=== PATIENT | female | born 1935 | race Caucasian/White ===

== ENCOUNTER 2016-07-05 13:39 | Inpatient (IN) | payer OTHER ==
[~2016-07-05] VITALS: Ht 180.3 cm; Wt 84.8 kg
[2016-07-05] VITALS (17 sets, daily range): BP systolic 60–140; BP diastolic 10–106
--- NOTE | ~2016-07-05 | H ---
[facility] [place] [address] HISTORY AND PHYSICAL Name: ESTEBAN GIRON Sanjiv Room #: 420-P [facility] IN M.R.#: [id number] Admission: 07/05/16 Attend Phys: Deya Haile MD Discharge: 07/11/16 Date of : 34 Report #: [id number] THIS REPORT FOR: //name// CC: Lokesh Haile PRIMARY CARE PHYSICIAN: Lokesh Whelan M.D. CHIEF COMPLAINT: Worsening respiratory failure secondary to pneumonia and influenza. HISTORY OF PRESENT ILLNESS: The patient is an 80-year-old female with a history of pulmonary fibrosis, chronic respiratory failure requiring nocturnal O2 followed at by Dr. Nelson, diabetes, hypothyroidism, AFib on chronic anticoagulation and prior PE; was transferred from [facility] secondary to worsening respiratory status. The patient was actually admitted at [facility] at which time she was treated for pneumonia. She was admitted on 06/27/2016. She subsequently was transferred to [facility] but in the past 24 hours, has decompensated. She generally is on 2 liters of nocturnal home O2, but is currently on 4 liters. Recent workup included influenza swab that was positive for influenza A. She reports more shortness of breath with minimal exertion. Repeat chest x-ray done yesterday showed a mild vascular congestion with persistent left lower lobe consolidating infiltrate. She was subsequently transferred up here and is currently in ICU. She also has a history of chronic lower extremity swelling and has wounds that have gotten worse in the recent past as well. PAST MEDICAL HISTORY: Pulmonary fibrosis with chronic respiratory failure, on nocturnal O2; diabetes; hypothyroidism; neuropathy; atrial fib, on chronic anticoagulation; prior PE and DVT, on Coumadin; hypertension; aortic stenosis; COPD; diverticulitis, recurrent UTIs and rheumatoid arthritis. PAST SURGICAL HISTORY: Appendectomy, hysterectomy, shoulder surgery and right lower extremity venous stripping. ALLERGIES: To MACRODANTIN, FENTANYL, SULFA and DUONEB, reactions unknown. SOCIAL HISTORY: She is a former smoker. Drinks recreationally, lives alone at home. FAMILY HISTORY: Positive for heart disease in CVA. REVIEW OF SYSTEMS: A 14-point review of system was conducted, all negative except for above. As stated, she was recently at [facility] for pneumonia. She has been having loose stools and reported C. diff over at the outlying facility was negative. [address] [address] HISTORY AND PHYSICAL Name: ESTEBAN GIRON Room #: 420-P [facility] IN [facility]#: [id number] Admission: 07/05/16 Attend Phys: Deya Haile MD Discharge: 07/11/16 Date of : 34 Report #: [id number] HOME MEDICATIONS: 100 mcg daily, metoprolol XL 50 daily, glimepiride 1 mg q.a.m., gabapentin 100 t.i.d., diltiazem 180 b.i.d., Breo one inhalation daily, oxybutynin 5 mg b.i.d., prednisone 5 mg daily, propranolol 10 mg daily, Zantac 150 b.i.d. and temazepam 15 p.r.n. PHYSICAL EXAMINATION: VITAL SIGNS: Temperature of 98.1, heart rate 76, blood pressure 113/50 and O2 sat is 98% on 4 liters. GENERAL: She is awake, alert, answering questions appropriately, no acute respiratory distress unless she exerts herself. HEENT: Normocephalic and atraumatic. Pupils equal. Mucous membranes are dry. NECK: Supple. CARDIOVASCULAR: Regular rate and rhythm. No murmurs. LUNGS: Clear to auscultation bilaterally, decreased in the bases. Coarse breath sounds. ABDOMEN: Soft. No distention or tenderness. EXTREMITIES: She has got 1+ edema bilaterally with notable ecchymosis and wrapping over her left lower extremity from the previous facility. LABORATORY DATA AND TESTING: Influenza A was positive. Chest x-ray yesterday showed a mild vascular congestion. Sodium 149, potassium 3.2, mag was 1.4, total CO2 of 30 and BUN and creatinine 20 and 0.9. 45. Albumin 2.4. White count 8.3, H and H of 10 and 33 and MCV of 97. ASSESSMENT AND PLAN: 1. Luxva-ml-sgvgpue hypoxic respiratory failure, influenza. 2. Healthcare associated pneumonia. 3. Question vascular congestion. 4. Hyponatremia. 5. Chronic obstructive pulmonary disease and pulmonary fibrosis. 6. The patient got chronic obstructive pulmonary disease exacerbation. 7. Pulmonary fibrosis. 8. Chronic immunosuppression. 9. Type 2 diabetes. 10. History of rheumatoid arthritis. 11. Paroxysmal atrial fibrillation, on chronic anticoagulation. 12. History of pulmonary embolism and deep venous thrombosis. 13. Aortic stenosis. 14. Chronic lower extremity swelling with chronic wounds. 15. Recurrent urinary tract infections. 16. Hypothyroidism. 17. Neuropathy. PLAN: 1. We will continue broad-spectrum antibiotics. [facility] [address] [place] [address] HISTORY AND PHYSICAL Name: ESTEBAN GIRON Room #: 420-P [facility] IN .R.#: [id number] Admission: 07/05/16 Attend Phys: Deya Haile MD Discharge: 07/11/16 Date of : 34 Report #: [id number] 2. Pulmonary toiletry. 3. Nebulizers with Xopenex, not DuoNeb as she has allergies to that. 4. Steroids. 5. O2 support. 6. Continue Tamiflu. 7. Fluid support with half-normal saline. 8. Resume oral hypoglycemics and Accu-Cheks. 9. Daily INRs and resume Coumadin. 10. Get wound care to see her. 11. Check a C. diff. 12. DVT prophylaxis, she is on Coumadin. <ELECTRONICALLY SIGNED> By: Shraddha Penaloza MD 07/29/162009 1635 1754 Shraddha Penaloza MD /nt
--- NOTE | ~2016-07-05 | HC ---
[facility] [place] [address] CONSULTATION Name: BREEESTEBAN Sanjiv Room #: 420-P [facility] IN ..#: [id number] Admission: 07/05/16 Attend Phys: Deya Haile MD Discharge: 07/11/16 Date of : 34 Report #: [id number] THIS REPORT FOR: //name// CC: Lokesh Haile DATE OF SERVICE: 07/08/2016 PERSONAL PHYSICIAN: Kush Mackenzie DO in [place]. New hospital visit for an established patient of mine. CHIEF COMPLAINT: Leg ulcer and coccyx ulcer. HISTORY OF PRESENT ILLNESS: The patient is an 80-year-old white female who is currently hospitalized now for influenza and respiratory failure. Upon admission, the patient was noted to have edematous legs of which I have been asked to assist in the care. The patient also, because of severe immobility, has developed a small coccygeal ulcer which she does complain of mild pain. The patient denies any actual recent fevers or chills. The patient denies any other associated complaints at this time. DRUG ALLERGIES: Multiple; I reviewed the patient's drug allergies, does include SULFA. I have noted this even though we will still use morphine and Silvadene cream on the patient. CURRENT MEDICATIONS: Multiple; I reviewed the patient's medication list. PAST MEDICAL HISTORY: Significant for: 1. Pulmonary embolism. 2. Pulmonary fibrosis. 3. Chronic venous insufficiency/lymphedema with recurrent ulcerations. 4. Hypertension. PAST SURGICAL HISTORY: Colon resection, hysterectomy, tonsillectomy, carpal tunnel release and hernia repair. FAMILY HISTORY: Significant for heart disease. SOCIAL HISTORY: The patient has a remote history of smoking, alcohol use is rare, lives independently with her family. REVIEW OF SYSTEMS: CONSTITUTIONAL: The patient denies fevers or chills, but did have fevers and chills prior to admission. [facility] [address] [place] [address] CONSULTATION Name: ESTEBAN GIRON Room #: 420-P [facility]#: [id number] Admission: 07/05/16 Attend Phys: Deya Haile MD Discharge: 07/11/16 Date of : 34 Report #: [id number] NEUROLOGIC: The patient complains of overall generalized weakness. EYES: No complaints. ENT: No complaints. CARDIAC: The patient denies chest pain or palpitations, has chronic lower extremity edema. RESPIRATORY: The patient is currently having wheezes with shortness of breath and dyspnea associated with cough. GASTROINTESTINAL: The patient denies nausea, vomiting, abdominal pain but a decreased appetite. GENITOURINARY: The patient denies urgency or frequency. MUSCULOSKELETAL: No complaints. SKIN: Chronic ulcer on the right great toe which started as a small blister. There is a single coccygeal ulcer, stage 2. PHYSICAL EXAMINATION: VITAL SIGNS: Stable. The patient is afebrile. GENERAL: This is an alert and oriented x 3, pleasant elderly white female who is in [id number] respiratory distress. HEENT: Normocephalic, atraumatic. Mucous membranes are dry. Pupils are round. Nasal cannula is in place. Sclerae are white. NECK: Without JVD or masses. BACK: Nontender. LUNGS: Coarse with wheezes heard throughout. CHEST: Nontender. HEART: Regular, without murmur. ABDOMEN: Soft, otherwise nontender. EXTREMITIES: The patient has trace to 1+ edema in the lower extremities which is markedly improved from my previous exam. There is a small dry eschar on the right great toe which appears to be a resolved blister. No evidence of any obvious open ulcerations are noted on the lower extremities. Evaluation of the coccygeal area reveals a stage 2 superficial ulcer which is clean and granulating. NEUROLOGIC: Cranial nerves 2-12 are grossly intact. Motor and sensory are grossly intact. LABORATORY DATA: White count 9.1, hemoglobin 11.3. WOUND CARE COURSE: At this time, we are going to continue current course of Xeroform to bilateral lower extremities with Kerlix and Ben for control of edema. I am changing this every 2 days. We will start morphine and Silvadene cream to the coccygeal ulceration 3 times daily and p.r.n. soilage. We will order the patient today a low air loss mattress as well due to her significant immobility as well as an air loss cushion for her chair. We will make sure we maximize the patient's protein supplementation for healing. Once the patient is more medically stable, we will try to increase the patient's physical and occupational therapy for strengthening. I appreciate the ability consulting [address] [address] CONSULTATION Name: BREEESTEBAN Room #: 420-P [facility] IN [facility].#: [id number] Admission: 07/05/16 Attend Phys: Deya Haile MD Discharge: 07/11/16 Date of : 34 Report #: [id number] this patient ____ in this patient. IMPRESSION: 1. Chronic venous insufficiency/lymphedema with edema, overall ____ controlled. 2. Stage 2 coccygeal ulcer. 3. Chronic ulcer, right great toe - with eschar. 4. Generalized debility. PLAN: Once again described as above. <ELECTRONICALLY SIGNED> By: Remy Romero MD 07/18/16 0824 1746 2256 Remy Romero MD /nt
--- NOTE | ~2016-07-05 | 2DMMODE ---
[facility] [place] [address] 2 D/M-MODE ECHOCARDIOGRAM Name: ESTEBAN GIRON Sanjiv Room #: 244-P [facility] IN .#: [id number] Admission: 07/05/16 Attend Phys: Deya Haile Discharge: Date of : 34 Date of Service: 07/07/16 1347 Report #: [id number] THIS REPORT FOR: //name// Transthoracic Echocardiography Ordering physician: Karmen Fregoso Referring physician: Lokesh Whelan Laura L. Cognos: NICOLAS Manriquez Indications/History: Aortic stenosis, Atrial fibrillation,SOA, HTN, HLP. BP: 134 / HR: Height: 70in Weight: 194.6lb 90 Study data: M-mode, complete 2D, complete spectral Doppler, and color Doppler. Location: Bedside. Routine. Image quality was adequate. The study was technically limited due to body habitus. 2D measurements Normal Normal LVID ED 34.4mm 36-57 IVS ED 12.2mm 6-11 LVID ES 23.8mm 23-40 LVPW ED 13.3mm 6-11 LA volume 51ml/m2 16-28 AoRoot diam 31.3mm 21-37 index ED LVOT diameter 21mm 18-23 Findings: Left ventricle: The cavity size was normal. Wall thickness was normal. Systolic function was normal. The estimated ejection fraction was in the range of 55% to 60%. Wall motion was normal. Right ventricle: The cavity size was dilated. Systolic function was normal. Right atrium: The atrium was dilated. Left atrium: The atrium was dilated. Volume index: 51ml/m2 (S). Aortic valve: Trileaflet; mildly thickened, mildly calcified leaflets. Doppler: There was mild stenosis. [facility] [place] [address] 2 D/M-MODE ECHOCARDIOGRAM Name: ESTEBAN GIRON Room #: 244-P [facility] IN [facility]#: [id number] Admission: 07/05/16 Attend Phys: Deya Haile Discharge: Date of : 34 Date of Service: 07/07/16 1347 Report #: [id number] Trivial regurgitation. Peak velocity: 243.3cm/s (S). Valve area: 1.2cm2(VTI). Mean gradient: 11.7mm Hg (S). Peak gradient: 23.9mm Hg (S). Mitral valve: Mildly calcified annulus. Doppler: There was no evidence for stenosis. Mild regurgitation. Peak E-wave velocity: 105.5cm/s. Peak gradient: 4.4mm Hg (D). Tricuspid valve: Structurally normal valve. Doppler: There was no evidence for stenosis. Moderate regurgitation. Regurgitant peak velocity: 307cm/s. Peak RV-RA gradient: 38mm Hg (S). Pulmonic valve: Structurally normal valve. Doppler: There was no evidence for stenosis. No regurgitation. Pericardium: There was no pericardial effusion. Aorta: Aortic root: The aortic root was normal in size. Pulmonary artery: Systolic pressure was estimated to be 53mm Hg. Diastolic function: The study was not technically sufficient to allow evaluation of LV diastolic dysfunction due to atrial fibrillation. Systemic veins: Inferior vena cava: The vessel was dilated; respirophasic changes in dimension were absent. Conclusions 1. Left ventricle: The cavity size was normal. Wall thickness was normal. Systolic function was normal. The estimated ejection fraction was in the range of 55% to 60%. 2. Right ventricle: The cavity size was dilated. 3. Right atrium: The atrium was dilated. 4. Left atrium: The atrium was dilated. 5. Aortic valve: Trileaflet; mildly thickened, mildly calcified leaflets. There was mild stenosis. Trivial regurgitation. 6. Mitral valve: Mildly calcified annulus. 7. Tricuspid valve: Moderate regurgitation. 8. Pulmonary arteries: Systolic pressure was estimated to be 53mm Hg. 9. Inferior vena cava: The vessel was dilated; respirophasic changes in dimension were absent. <ELECTRONICALLY SIGNED> By: Garcia Beard MD 07/07/16 1505 1347 1505 Garcia Beard MD /evan
--- NOTE | ~2016-07-05 | HC ---
[facility] [place] [address] CONSULTATION Name: ESTEBAN GIRON Room #: 244-P [facility] IN M.R.#: [id number] Admission: 07/05/16 Attend Phys: Deya Haile MD Discharge: Date of : 34 Report #: [id number] THIS REPORT FOR: //name// CC: Lokesh Haile DATE OF SERVICE: 07/06/2016 ATTENDING PHYSICIAN: Deya Haile M.D. PHYSICIAN REQUESTING CONSULTATION: Dr. Penaloza. REASON FOR CONSULTATION: Pneumonia. HISTORY OF PRESENT ILLNESS: The patient is an 80-year-old white woman, transferred to [facility] from [facility] where she was hospitalized for a week with increasing difficulty in breathing and found to have worsening pulmonary infiltrates and increased requirements of supplemental oxygen. The patient is seen in the intensive care unit. The patient's daughter assists with the history. The patient apparently was recently diagnosed the day prior to admission with influenza. She was started on oseltamivir. She was already on intravenous antibiotics, Levaquin, Zosyn, vancomycin as well as increased doses of steroids. PAST MEDICAL HISTORY AND PAST SURGICAL HISTORY: 1. Possible pulmonary fibrosis and bronchiectasis, being followed at [facility]. She was started on medication for pulmonary fibrosis that she did not tolerate, subsequently put on steroids. 2. There was a tentative diagnosis of rheumatoid arthritis, and this was ruled out, but she does have significant osteoarthritis. 3. Diabetes mellitus. 4. Neuropathy. 5. Atrial fibrillation, on chronic anticoagulation. 6. Pulmonary embolism with DVT. 7. Aortic stenosis. 8. Previous episode of diverticulitis. 9. She is status post appendectomy, hysterectomy, venous stripping lower extremities. DRUG ALLERGIES: SULFA, ALBUTEROL, METHOTREXATE, NITROFURANTOIN, FENTANYL, HYDROXYCHLOROQUINE, ATROVENT, RIVAROXABAN and APIXABAN. CURRENT MEDICATIONS: The patient is on treatment with warfarin, glyburide, insulin aspartate per sliding scale, Diltiazem, oseltamivir 75 mg IV daily, Zosyn 3.375 grams IV every 6 hours, vancomycin 1 g IV every 12 hours and Levaquin 500 mg IV daily. The patient is also on p.r.n. loperamide, glucagon, [address] [address] CONSULTATION Name: ESTEBAN GIRON Sanjiv Room #: 244-P [facility] IN ..#: [id number] Admission: 07/05/16 Attend Phys: Deya Haile MD Discharge: Date of : 34 Report #: [id number] glucose, ondansetron and acetaminophen. SOCIAL HISTORY: See H and P. FAMILY HISTORY: See H and P. REVIEW OF SYSTEMS: The patient recently diagnosed to have influenza, which made things worse. Aches and pains all over. Skin breakdown lower and upper extremities, possibly from steroid use. NEUROLOGIC: Increasing weakness. RESPIRATORY: Increasing shortness of breath, no expectoration. No gastrointestinal or genitourinary issues at present. PHYSICAL EXAMINATION: GENERAL: Well-developed, ill-appearing woman. VITAL SIGNS: Afebrile since admission. Temperature 98.4, pulse 105, respirations 23, blood pressure ____/87 and O2 supplementation per nasal cannula at 4 liters per minute gives her a saturation of 98%. HEENMT: Head normocephalic and atraumatic. Pupils reactive. Mouth, very dry mucous membranes. NECK: Supple, no thyromegaly. BREASTS: Deferred. LUNGS: Rhonchi, crackles and congested sounding, particularly worse posteriorly on both bases, left greater than right. HEART: S1 and S2. No gallop or murmur. ABDOMEN: Soft, no masses or megaly. PELVIC AND RECTAL: Deferred. EXTREMITIES: Dressing on legs intact. Skin breakdown upper extremities. NEUROLOGIC: Grossly within normal limits. LABORATORY DATA: The referring hospital, rapid influenza test positive for influenza A. Sodium 147, potassium 3.4, corrected to 3.5, BUN 20, creatinine 1, glucose 141, 149, protime 15.4 and INR 1.5. WBC 9800, hemoglobin 10.6 g/dL and platelets 346,000. There was a vancomycin trough obtained yesterday. This was 28. Repeat vancomycin level is pending today. MRSA screen negative. Urine analysis, trace blood, otherwise negative. MICROBIOLOGY DATA: 1 out of 2 blood cultures reveal Enterococcus species, full identification and sensitivity is pending. The urine is negative for Legionella and Streptococcus pneumoniae antigen. RADIOLOGY EVALUATION: CT scan of the chest PE protocol is negative for pulmonary embolism, but the patient has ground-glass appearance of pulmonary cesar as well as bronchiectasis and pulmonary infiltrates, worse on left. Multiple level compression fractures are detected and significant coronary artery calcification noted. [facility] [address] [place] [address] CONSULTATION Name: ESTEBAN GIRON Room #: 244-P [facility] IN M.R.#: [id number] Admission: 07/05/16 Attend Phys: Deya Haile MD Discharge: Date of : 34 Report #: [id number] ASSESSMENT: 1. Pneumonia with single positive blood culture that turns out to be Enterococcus species. 2. Bronchiectasis. 3. Pulmonary fibrosis. 4. 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 5. Osteoarthritis (rheumatoid arthritis ruled out). 6. Chronic atrial fibrillation. 7. History of pulmonary embolism, on chronic anticoagulation. 8. Influenza A. 9. Anemia of chronic disease. 10. Skin breakdown of upper and lower extremities, possibly secondary to chronic steroid use. SUGGESTIONS: Recommend continued coverage with Levaquin, Zosyn and vancomycin as well as Tamiflu. Obtain immunoglobulin levels and have ordered urine for Pneumococcus and Legionella antigen. Dr. Penaloza, thank you for requesting my suggestions in the care of your patient. <ELECTRONICALLY SIGNED> By: Billy Hayes MD 07/08/16 1011 1030 1608 Billy Hayes MD /nt
[2016-07-05 17:44] LABS: INR 1.7; PROTIME 18.1 Seconds (9.3-11.4)
[2016-07-05 17:45] LABS: TROPONIN-I < 0.04 ng/mL (<0.04-0.07)
[2016-07-05] MEDS ORDERED: ACETAMINOPHEN-1 EAC1 PO (19:09)
[2016-07-05] MEDS ORDERED: GABAPENTIN 100100 MG PO (23:40)
[2016-07-05] MEDS ORDERED: XOPENEX 0.63 MG/3 M1 INH (23:43)
[2016-07-05] MEDS ORDERED: AZITHROMYCIN500 M1 IV (23:43)
[2016-07-05] MEDS ORDERED: ZOSYN 3.3753.375 GM IV (23:50)
[2016-07-05] MEDS ORDERED: CARDIZEM CD180 MG PO (23:52)
[2016-07-05] MEDS ORDERED: OXYBUTYNIN 5 MG5 M2 PO (23:53)
[2016-07-05] MEDS ORDERED: ZANTAC 150MG T150 MG PO (23:54)
[2016-07-05] MEDS ORDERED: LEVOTHYROXINE 0.1 MG PO (23:55)
[2016-07-05] MEDS ORDERED: AMARYL2 MG PO (23:57)
[2016-07-05] MEDS ORDERED: BUMETANIDE0.25 MG/1 PO (23:58)
[2016-07-06] VITALS (20 sets, daily range): BP systolic 131–151; BP diastolic 70–104
[2016-07-06] MEDS ORDERED: BREO ELLIPTA 21 EACH IH (00:01)
[2016-07-06] MEDS ORDERED: TOPROL XL100 MG PO (00:02)
[2016-07-06] MEDS ORDERED: PREDNISONE 5 MG5 M1 PO (00:03)
[2016-07-06] MEDS ORDERED: LOPERAMIDE 2 MG2 M1 PO (00:04)
[2016-07-06 00:06] LABS: TROPONIN-I < 0.04 ng/mL (<0.04-0.07)
[2016-07-06] MEDS ORDERED: VANCOMYCIN1 GM/200 M IV (00:06)
[2016-07-06] MEDS ORDERED: NYSTATIN 1100000 U/M SWISH&SPIT (00:07)
[2016-07-06] MEDS ORDERED: KLOR-CON 1010 MEQ PO (00:11)
[2016-07-06 06:50] LABS: HEMATOCRIT 32.8 % (37.0-47.0); HEMOGLOBIN 10.7 gm/dL (12.0-15.0); MCH 31.6 pg (26.0-34.0); MCHC 32.6 % (28.0-37.0); MCV 96.8 fL (80.0-100.0); PLATELET COUNT 351 thou/uL (150-400); RBC 3.39 mil/uL (4.20-5.00); RDW 16.7 % (10.5-14.5); WBC 10.1 thou/uL (4.0-11.0)
[2016-07-06 07:04] LABS: CALCIUM 8.1 mg/dL (8.5-10.1); POTASSIUM 3.4 mmol/L (3.5-5.1)
[2016-07-06 07:05] LABS: INR 1.7; PROTIME 17.2 Seconds (9.3-11.4)
[2016-07-06 07:12] LABS: MANUAL DIFF YES
[2016-07-06 08:07] LABS: ABSOLUTE NEUTROPHILS 8.8 thou/uL (1.4-8.2); POIKILOCYTOSIS SLIGHT; TOTAL CELL COUNT 100
[2016-07-06 12:54] LABS: URINE BILIRUBIN NEGATIVE (Negative); URINE BLOOD TRACE (Negative); URINE COLOR YELLOW; URINE GLUCOSE-RANDOM* NEGATIVE (Negative); URINE KETONES NEGATIVE (Negative); URINE LEUKOCYTES-REFLEX NEGATIVE (Negative); URINE PROTEIN (DIPSTICK) 1+ (Negative); URINE SPECIFIC GRAVITY 1.025 (1.003-1.035); URINE UROBILINOGEN 0.2 E.U./dl (0.2-1.0)
[2016-07-06 13:01] LABS: CASTS None Seen /LPF (None Seen); CRYSTALS None Seen /LPF (None Seen); SQUAMOUS 0-3 Few /LPF (0-3); URINE RBC 0-2 Rare /HPF (0-2); URINE WBC-REFLEX None Seen /HPF (0-5)
[2016-07-07] VITALS (23 sets, daily range): BP systolic 128–161; BP diastolic 66–112
[2016-07-07 02:08] LABS: HEMATOCRIT 32.3 % (37.0-47.0); HEMOGLOBIN 10.6 gm/dL (12.0-15.0); MCH 31.9 pg (26.0-34.0); MCHC 32.8 % (28.0-37.0); MCV 97.2 fL (80.0-100.0); RBC 3.32 mil/uL (4.20-5.00); RDW 16.9 % (10.5-14.5); WBC 9.8 thou/uL (4.0-11.0)
[2016-07-07 02:18] LABS: POTASSIUM 3.5 mmol/L (3.5-5.1)
[2016-07-07 02:25] LABS: INR 1.5; PROTIME 15.4 Seconds (9.3-11.4)
[2016-07-07 10:08] LABS: IgA 117 mg/dL (64-422); IgG 501 mg/dL (700-1600); IgM 19 mg/dL (26-217)
[2016-07-08] VITALS (23 sets, daily range): BP systolic 119–156; BP diastolic 83–131
[2016-07-08 06:44] LABS: HEMATOCRIT 34.2 % (37.0-47.0); HEMOGLOBIN 11.3 gm/dL (12.0-15.0); MCH 31.5 pg (26.0-34.0); MCHC 33.1 % (28.0-37.0); MCV 95.3 fL (80.0-100.0); RBC 3.59 mil/uL (4.20-5.00); RDW 16.7 % (10.5-14.5); WBC 9.1 thou/uL (4.0-11.0)
[2016-07-08 07:04] LABS: CALCIUM 8.5 mg/dL (8.5-10.1); POTASSIUM 3.7 mmol/L (3.5-5.1)
[2016-07-08 07:41] LABS: INR 1.3; PROTIME 13.2 Seconds (9.3-11.4)
[2016-07-09] VITALS (19 sets, daily range): BP systolic 116–156; BP diastolic 63–110
[2016-07-09 06:44] LABS: HEMATOCRIT 35.3 % (37.0-47.0); HEMOGLOBIN 11.3 gm/dL (12.0-15.0); MCH 31.2 pg (26.0-34.0); MCHC 32.1 % (28.0-37.0); MCV 97.1 fL (80.0-100.0); RBC 3.63 mil/uL (4.20-5.00); RDW 16.7 % (10.5-14.5); WBC 11.3 thou/uL (4.0-11.0)
[2016-07-09 06:54] LABS: INR 1.6; PROTIME 16.7 Seconds (9.3-11.4)
[2016-07-09 06:57] LABS: CALCIUM 8.5 mg/dL (8.5-10.1); POTASSIUM 3.2 mmol/L (3.5-5.1)
[2016-07-09 21:44] LABS: HEMATOCRIT 34.1 % (37.0-47.0); HEMOGLOBIN 11.2 gm/dL (12.0-15.0); MCH 31.3 pg (26.0-34.0); MCHC 32.8 % (28.0-37.0); MCV 95.5 fL (80.0-100.0); RBC 3.57 mil/uL (4.20-5.00); RDW 16.6 % (10.5-14.5); WBC 14.1 thou/uL (4.0-11.0)
[2016-07-09 21:51] LABS: CALCIUM 8.3 mg/dL (8.5-10.1); CREATININE 1.1 mg/dL (0.6-1.3); POTASSIUM 3.9 mmol/L (3.5-5.1)
[2016-07-10] VITALS (11 sets, daily range): BP systolic 129–154; BP diastolic 83–107
[2016-07-10 05:08] LABS: ABG SAMPLE TYPE ARTERIAL; BE(vivo) 7.2 mmol/L (-2 to +3); HCO3 33.3 mmol/L (22.0-26.0); O2(CT) 16.2 mL/dL (15.0-23.0); O2Hb 91.5 % (92.0-98.0); PCO2 53.7 mmHg (35.0-45.0); PO2 67.2 mmHg (80.0-100.0); STICK SITE R.RADIAL; sO2 93.2 % (92.0-98.0); tCO2 34.9 mmol/L (24.0-30.0)
[2016-07-10 05:12] LABS: HEMATOCRIT 37.1 % (37.0-47.0); HEMOGLOBIN 11.8 gm/dL (12.0-15.0); MCHC 31.8 % (28.0-37.0); MCV 97.8 fL (80.0-100.0); RBC 3.79 mil/uL (4.20-5.00); RDW 16.9 % (10.5-14.5); WBC 16.5 thou/uL (4.0-11.0)
[2016-07-10 05:28] LABS: INR 2.3; PROTIME 23.4 Seconds (9.3-11.4)
[2016-07-10 05:40] LABS: ALBUMIN 2.5 g/dL (3.4-5.0); CALCIUM 8.3 mg/dL (8.5-10.1); TOTAL BILIRUBIN 0.4 mg/dL (<0.1-1.0); TOTAL PROTEIN 5.6 g/dL (6.4-8.2)
[2016-07-11 04:00] VITALS: BP 137/96
[2016-07-11 04:49] LABS: HEMATOCRIT 34.3 % (37.0-47.0); HEMOGLOBIN 11.3 gm/dL (12.0-15.0); MCH 31.3 pg (26.0-34.0); MCV 94.9 fL (80.0-100.0); RBC 3.62 mil/uL (4.20-5.00); RDW 16.3 % (10.5-14.5); WBC 19.4 thou/uL (4.0-11.0)
[2016-07-11 05:00] LABS: INR 2.7; PROTIME 27.8 Seconds (9.3-11.4)
[2016-07-11 05:06] LABS: CALCIUM 8.3 mg/dL (8.5-10.1)
[2016-07-11 08:11] VITALS: BP 149/89
[2016-07-11 15:25] VITALS: BP 149/89
[2016-07-11] MEDS ORDERED: MSL20MG/ML PO (15:39)
[2016-07-11] MEDS ORDERED: ATIVAN0.5 MG PO (16:06)
[2016-07-11 16:21] VITALS: BP 143/90
[2016-07-11 17:14] VITALS: BP 149/89
== END 2016-07-11 17:52 | disposition hospice, home (50) | DRG 871 ==
LOC: ICU 13:39 → 4E 07-10 16:27
PROVIDERS: Family Medicine; Internal Medicine Endocrinology, Diabetes & Metabolism; Internal Medicine Infectious Disease; Internal Medicine Pulmonary Disease
PROC: B548ZZA Ultrasonography of Superior Vena Cava, Guidance (ICD-10-PCS; principal; 2016-07-05)
PROC: 02HV33Z Insertion of Infusion Device into Superior Vena Cava, Percutaneous Approach (ICD-10-PCS; principal; 2016-07-05)
DX: A41.9 Sepsis, unspecified organism (principal); J18.9 Pneumonia, unspecified organism; J96.21 Acute and chronic respiratory failure with hypoxia; G93.40 Encephalopathy, unspecified; E87.0 Hyperosmolality and hypernatremia; J44.1 Chronic obstructive pulmonary disease with (acute) exacerbation; N39.0 Urinary tract infection, site not specified; J44.0 Chronic obstructive pulmonary disease with (acute) lower respiratory infection; J09.X2 Influenza due to identified novel influenza A virus with other respiratory manifestations; M06.9 Rheumatoid arthritis, unspecified; M19.90 Unspecified osteoarthritis, unspecified site; E11.40 Type 2 diabetes mellitus with diabetic neuropathy, unspecified; I35.0 Nonrheumatic aortic (valve) stenosis; J84.10 Pulmonary fibrosis, unspecified; I48.2 Chronic atrial fibrillation; D63.8 Anemia in other chronic diseases classified elsewhere; I87.2 Venous insufficiency (chronic) (peripheral); I10 Essential (primary) hypertension; L89.152 Pressure ulcer of sacral region, stage 2; S81.809A Unspecified open wound, unspecified lower leg, initial encounter; G47.00 Insomnia, unspecified; Z16.21 Resistance to vancomycin; K57.90 Diverticulosis of intestine, part unspecified, without perforation or abscess without bleeding; L97.519 Non-pressure chronic ulcer of other part of right foot with unspecified severity; E03.9 Hypothyroidism, unspecified; Z96.619 Presence of unspecified artificial shoulder joint; Z98.890 Other specified postprocedural states; Z88.2 Allergy status to sulfonamides; Z88.8 Allergy status to other drugs, medicaments and biological substances; Z90.710 Acquired absence of both cervix and uterus; Z88.6 Allergy status to analgesic agent; Z86.711 Personal history of pulmonary embolism; Z79.01 Long term (current) use of anticoagulants; Z87.891 Personal history of nicotine dependence; Z86.718 Personal history of other venous thrombosis and embolism; Z79.899 Other long term (current) drug therapy; Z82.49 Family history of ischemic heart disease and other diseases of the circulatory system; Z83.3 Family history of diabetes mellitus
CPT/HCPCS: 10078; 10183; 27000